=== PATIENT | male | born 1995 | race Two or more races ===

== ENCOUNTER 2022-02-04 11:34 | Emergency (ER) | payer SELFPAY ==
[2022-02-04] MEDS ORDERED: Ondansetron 4 MG/2 ML SDV IVPUSH PRN (11:50)
[2022-02-04] MEDS ORDERED: Sodium Chloride 0.9% 10 ML Syringe FLUSH PRN (11:51)
[2022-02-04] MEDS ORDERED: Sodium Chloride 0.9% 1,000 ML IV SCH (12:00)
[2022-02-04 13:21] LABS: CORONAVIRUS COVID-19 NAA NEGATIVE (NEGATIVE)
[2022-02-04] MEDS ORDERED: Sodium Chloride 0.9% 1,000 ML IV ONE (13:33)
[2022-02-04 14:30] LABS: ESTIMATED GFR 105 mL/min (>60)
== END 2022-02-04 17:16 | disposition home or self-care (01) ==
LOC: JD.ED 11:34
DX: N30.01 Acute cystitis with hematuria (principal); R73.9 Hyperglycemia, unspecified; Z79.899 Other long term (current) drug therapy; Z20.822 Contact with and (suspected) exposure to COVID-19
CPT/HCPCS: 0240U; 36415; 71045; 80053; 81001; 82009; 82800; 82947; 83605; 83735; 84100; 84484; 85025; 86140; 87040; 87086; 93005; 96361; 96374; 99285